=== PATIENT | male | born 1985 | race Caucasian/White ===

== ENCOUNTER 2018-05-31 19:00 | Emergency (ER) | payer SELFPAY ==
[~2018-05-31] VITALS: Ht 167.6 cm; Wt 63.5 kg
[~2018-05-31 19:00] MED LIST: CLARITIN10 MG PO; FLEXERIL5 MG PO; MEDROL DOSEPAK4 MG PO; PREDNISONE20 MG PO; TRAMADOL HCL50 MG PO
[2018-05-31 19:01] VITALS: BP 106/73
[2018-05-31] MEDS ORDERED: Bactroban Oint22 GM T (19:06)
[2018-05-31] MEDS ORDERED: SEPTDS PO (19:06)
[2018-05-31] MEDS ORDERED: KEFLEX500 M1 PO (19:06)
== END 2018-05-31 19:12 | disposition home or self-care (01) ==
LOC: ED 19:00
DX: L02.415 Cutaneous abscess of right lower limb (principal)

== ENCOUNTER 2020-07-27 15:24 | Emergency (ER) | payer SELFPAY ==
[~2020-07-27 15:24] MED LIST changes: +Bactroban Oint22 GM T; +KEFLEX500 M1 PO; +SEPTDS PO
[2020-07-27 15:33] VITALS: BP 119/94
[2020-07-27] MEDS ORDERED: METHOCARBAMOL500 M1 PO (16:17)
[2020-07-27] MEDS ORDERED: MEDROL DOSEPAK4 MG PO (16:17)
[2020-07-27] MEDS ORDERED: NAPROSYN500 MG PO (16:17)
== END 2020-07-27 16:36 | disposition home or self-care (01) ==
LOC: ED 15:24
DX: S39.012A Strain of muscle, fascia and tendon of lower back, initial encounter (principal); F17.200 Nicotine dependence, unspecified, uncomplicated; Z79.899 Other long term (current) drug therapy; X58.XXXA Exposure to other specified factors, initial encounter; Y93.89 Activity, other specified; Y92.89 Other specified places as the place of occurrence of the external cause; Y99.8 Other external cause status

== ENCOUNTER 2021-03-29 17:25 | Emergency (ER) | payer OTHER ==
[~2021-03-29] VITALS: Ht 167.6 cm; Wt 63.5 kg
[~2021-03-29 17:25] MED LIST changes: +METHOCARBAMOL500 M1 PO; +NAPROSYN500 MG PO
[2021-03-29 17:38] VITALS: BP 124/67
== END 2021-03-29 18:32 | disposition home or self-care (01) ==
LOC: ED 17:25
DX: G89.29 Other chronic pain (principal); M54.5 Low back pain; F17.200 Nicotine dependence, unspecified, uncomplicated; Z79.899 Other long term (current) drug therapy; Z79.2 Long term (current) use of antibiotics; Z96.22 Myringotomy tube(s) status

== ENCOUNTER 2025-05-03 00:14 | Emergency (ER) | payer OTHER ==
[2025-05-03 00:15] VITALS: BP 132/64
== END 2025-05-03 03:58 | disposition left against medical advice (07) ==
LOC: ED 00:14
DX: R51.9 Headache, unspecified (principal); Z79.899 Other long term (current) drug therapy; Z96.22 Myringotomy tube(s) status; Z53.29 Procedure and treatment not carried out because of patient's decision for other reasons; W17.81XA Fall down embankment (hill), initial encounter; Y93.01 Activity, walking, marching and hiking; Y92.828 Other wilderness area as the place of occurrence of the external cause; Y99.8 Other external cause status